=== PATIENT | male | born 1985 | race Caucasian/White ===

== ENCOUNTER 2018-08-07 22:04 | Emergency (ER) | payer SELFPAY ==
[~2018-08-07] VITALS: Ht 188 cm; Wt 113.4 kg
[2018-08-07 22:05] VITALS: BP_SYST 165
--- NOTE | 2018-08-07 22:10 | NUR ---
Patient to ER bed 3 to gown for evaluation. Side rails up. Report given to DEIDRE SOLANO.
--- NOTE | 2018-08-07 22:24 | NUR ---
ER Dr. Parker at bedside examining patient.
--- NOTE | 2018-08-07 22:25 | NUR ---
Pt C/O cough x 1 month. Pt states cough is productive and getting progressively worse. Pt denies SOB, chest pain, fever, or N/V/D. Pt smokes a pack a day and has hx of asthma. Vutal signs are stable will continue to monitor.
[2018-08-07 22:35] VITALS: BP_SYST 165
--- NOTE | 2018-08-07 22:35 | NUR ---
Patient given written and verbal discharge instructions and verbalizes understanding. ER MD discussed with patient the results and treatment provided. Patient in stable condition. ID arm band removed.Rx of Augmentin and Promethazine given. Patient educated on pain management and to follow up with PMD. Pain Scale 0/10. Opportunity for questions provided and answered. Medication side effect fact sheet provided.
== END 2018-08-07 22:35 | disposition home or self-care (01) ==
LOC: SED 22:04
DX: J20.9 Acute bronchitis, unspecified (principal); I10 Essential (primary) hypertension; F17.210 Nicotine dependence, cigarettes, uncomplicated; Z71.6 Tobacco abuse counseling; Z90.49 Acquired absence of other specified parts of digestive tract
CPT/HCPCS: 99283

== ENCOUNTER 2023-06-23 00:31 | Emergency (ER) | payer MEDICAID ==
[~2023-06-23] VITALS: Ht 188 cm; Wt 127.0 kg
[2023-06-23 00:34] VITALS: BP_SYST 165; PULSE 100; RESP 16; TEMP 97.9; O2SAT 98
[2023-06-23] MEDS ORDERED: LISINOPRIL 10 MG TABLET (PRINIVIL) PO ONE ×2 (00:45→02:00)
[2023-06-23] MEDS ORDERED: lisinopriL 20 MG TABLET ONE (01:26)
[2023-06-23 01:31] LABS: BASOPHILS # (AUTO) 0.1 K/uL (0.0-0.2); EOSINOPHILS # (AUTO) 0.3 K/uL (0.0-0.4); EOSINOPHILS % (AUTO) 3.9 % (0.0-4.0); HEMATOCRIT 40.9 % (36-54); HEMOGLOBIN 13.9 g/dL (14.0-18.0); LYMPHOCYTES % (AUTO) 30.2 % (20.5-51.5); MEAN CORPUSCULAR HEMOGLOBIN 28 pg (27-31); MEAN CORPUSCULAR HGB CONC 34 % (32-36); MEAN CORPUSCULAR VOLUME 83 fL (79.0-98.0); MONOCYTES # (AUTO) 0.5 K/uL (0.0-1.0); MONOCYTES % (AUTO) 8.1 % (1.7-9.3); NEUTROPHILS # (AUTO) 3.8 K/uL (1.8-7.7); NEUTROPHILS % (AUTO) 56.8 % (40.0-70.0); PLATELET COUNT (AUTO) 261 K/uL (130-430); RED BLOOD CELL COUNT(AUTO) 4.95 MIL/uL (4.2-6.2); WHITE BLOOD COUNT (AUTO) 6.7 K/uL (4.8-10.8)
[2023-06-23 01:37] LABS: ANION GAP 6 (5-15); CARBON DIOXIDE 31 mmol/L (23-29); CHLORIDE 106 mmol/L (98-107); CREATININE 1.13 mg/dL (0.55-1.30); GFR AFRICAN AMERICAN 92 mL/min (>90); GLUCOSE 96 mg/dL (74-106); POTASSIUM 4.1 mmol/L (3.5-5.1); SODIUM SERUM 143 mmol/L (136-145); UREA NITROGEN, BLOOD 14 mg/dL (8-21)
[2023-06-23 01:43] LABS: GFR NON AFRICAN-AMERICAN 76 mL/min (>90)
[2023-06-23] MEDS ORDERED: LISI1TAB57 PO (03:08)
[2023-06-23] MEDS ORDERED: LISI20TA30 PO (03:14)
[2023-06-23 03:17] VITALS: BP_SYST 127; PULSE 81; RESP 16; TEMP 98; O2SAT 98
== END 2023-06-23 03:17 | disposition home or self-care (01) ==
LOC: SED 00:31
DX: H53.8 Other visual disturbances (principal); I10 Essential (primary) hypertension; R42 Dizziness and giddiness; R51.9 Headache, unspecified; J45.909 Unspecified asthma, uncomplicated; Z79.899 Other long term (current) drug therapy
CPT/HCPCS: 36415; 70450-TC; 76376; 80048; 84484; 85025; 93005; 99285